=== PATIENT | male | born 1950 | race Caucasian/White ===

== ENCOUNTER 2017-07-16 19:01 | Emergency (ER) | payer OTHER ==
[2017-07-16 19:17] VITALS: TEMP 98.6
--- NOTE | 2017-07-16 19:35 | EDPHY ---
H & P Time Seen by Provider: 07/16/17 19:32 HPI/ROS: CHIEF COMPLAINT: Elevated blood pressure HISTORY OF PRESENT ILLNESS: Patient is a 67-year-old male with a history of coronary artery disease and stent x2 who presents to the emergency department with elevated blood pressure. The patient states in April blood pressure was 133/83. On 07/03/2017 his pressure was 143/74. Yesterday he took his blood pressure and it was 164/72. Today took a blood pressure and was 180/112. He denies any specific complaints. He has a mild headache. No focal deficits. No nausea or vomiting. No chest pain or shortness of breath. No abdominal pain. He has not used any tzvc-yly-bezdige medications. He changed to zetia a few months ago but otherwise his medications are unchanged. REVIEW OF SYSTEMS: My complete review of systems is negative except as mentioned in the HPI. Past Medical/Surgical History: Includes coronary artery disease, hypothyroidism, high cholesterol Past surgical history: Includes stent placement Social history: The patient does not smoke. He denies drug use. He drinks a couple of beers daily. Smoking Status: Former smoker Physical Exam: 197/116, 77, 20, 94% on room air, 37% GENERAL: Well-appearing, in no acute distress, alert. HEENT: Eyes normal to inspection, normal pharynx, no signs of dehydration. NECK: No thyromegaly, no lymphadenopathy, supple. RESPIRATORY: Clear to auscultation bilaterally, no rales, rhonchi or wheezing. CVS: Regular rate and rhythm, no rubs, murmurs, or gallops. ABDOMEN: Soft, nontender, nondistended, no organomegaly. BACK: Normal to inspection, no CVA tenderness. SKIN: Normal color, no rash, warm, dry. No pallor. EXTREMITIES: No pedal edema, no calf tenderness, no Homans sign or cords, no joint swelling. NEURO/PSYCH: Alert and oriented x3, normal mood and affect, normal motor sensory exam. No obvious cranial nerve deficit. Constitutional: Initial Vital Signs Temperature (C) 37 C 07/16/17 19:15 Heart Rate 77 07/16/17 19:15 Respiratory Rate 20 07/16/17 19:15 Blood Pressure 197/116 H 07/16/17 19:15 O2 Sat (%) 94 07/16/17 19:15 O2 Delivery Mode Room Air Allergies/Adverse Reactions: tetracycline Allergy (Verified 07/16/17 19:13) Home Medications: Medication Instructions Recorded Lisinopril 10 mg PO DAILY #7 tablet 07/16/17 Omeprazole 07/16/17 Zetia 07/16/17 Medical Decision Making ED Course/Re-evaluation: In the emergency department I discussed etiologies with the patient answered all his questions. An IV was placed. Laboratory studies were obtained. EKG shows normal sinus rhythm, normal rate, normal axis, normal intervals. There are no ST or T-wave abnormalities. EKG is normal as interpreted by me. I rechecked the patient's blood pressure on numerous occasions while here. Prior to leaving his blood pressure was 171/104. Chemistry panel and CBC were unremarkable. TSH was 5. Troponin is negative. I discussed with him. I answered his questions. He will be given a dose of lisinopril 10 mg orally. He will be given 1 week supply of lisinopril. He will follow up with his primary care physician at [place]. He will return with worsening symptoms. He is given warnings prior to leaving. Differential Diagnosis: My differential includes but is not limited to essential hypertension, hypertensive urgency, hypertensive emergency, renal disease, ACS - Data Points Laboratory Results: Laboratory Results 07/16/17 20:05 07/16/17 20:05 07/16/17 07/16/17 20:05 20:05 WBC 6.98 10^3/uL 10^3/uL (3.80-9.50) RBC 5.14 10^6/uL 10^6/uL (4.40-6.38) Hgb 16.3 g/dL g/dL (13.7-17.5) Hct 46.4 % % (40.0-51.0) MCV 90.3 fL fL (81.5-99.8) MCH 31.7 pg pg (27.9-34.1) MCHC 35.1 g/dL g/dL (32.4-36.7) RDW 12.8 % % (11.5-15.2) Plt Count 236 10^3/uL 10^3/uL (150-400) MPV 10.2 fL fL (8.7-11.7) Neut % (Auto) 61.1 % % (39.3-74.2) Lymph % (Auto) 23.8 % % (15.0-45.0) [place] % (Auto) 12.3 % % (4.5-13.0) Eos % (Auto) 1.9 % % (0.6-7.6) Baso % (Auto) 0.6 % % (0.3-1.7) Nucleat RBC Rel Count 0.0 % % (0.0-0.2) Absolute Neuts (auto) 4.27 10^3/uL 10^3/uL (1.70-6.50) Absolute Lymphs (auto) 1.66 10^3/uL 10^3/uL (1.00-3.00) Absolute Monos (auto) 0.86 10^3/uL H 10^3/uL (0.30-0.80) Absolute Eos (auto) 0.13 10^3/uL 10^3/uL (0.03-0.40) Absolute Basos (auto) 0.04 10^3/uL 10^3/uL (0.02-0.10) Absolute Nucleated RBC 0.00 10^3/uL 10^3/uL (0-0.01) Immature Gran % 0.3 % % (0.0-1.1) Immature Gran # 0.02 10^3/uL 10^3/uL (0.00-0.10) Sodium 140 mEq/L mEq/L (134-144) Potassium 4.3 mEq/L mEq/L (3.5-5.2) Chloride 105 mEq/L mEq/L (97-110) Carbon Dioxide 25 mEq/l mEq/l (22-31) Anion Gap 10 mEq/L mEq/L (8-16) BUN 21 mg/dL mg/dL (7-23) Creatinine 1.1 mg/dL mg/dL (0.7-1.3) Estimated GFR > 60 Glucose 91 mg/dL mg/dL (70-100) Calcium 9.7 mg/dL mg/dL (8.5-10.4) Troponin I < 0.012 ng/mL ng/mL (0.000-0.034) TSH 5.020 uIU/mL H uIU/mL (0.465-4.680) Departure - Departure Disposition: Home, Routine, Self-Care Clinical Impression: Hypertension Qualifiers: Hypertension type: unspecified Qualified Code(s): I10 - Essential (primary) hypertension Condition: Good Instructions: Hypertension (ED) Additional Instructions: You been given a 1st dose of lisinopril 10 mg orally. You been given prescription for 1 week supply of lisinopril tick followed instructions. You need close follow-up with your primary care physician. Return to the emergency department with increasing chest pain, shortness of breath, headache, weakness, numbness or any other concerns. Referrals: TYRONE TRUJILLO [Other] - 2-3 days, call for appt. Prescriptions: Lisinopril 10 mg PO DAILY #7 tablet
--- NOTE | 2017-07-16 19:36 | CPEKG ---
Heart Rate: 75 RR Interval: 800 P-R Interval: 184 QRSD Interval: 82 QT Interval: 384 QTC Interval: 429 P [place]: 21 QRS [place]: 22 T Wave [place]: 18 EKG Severity - NORMAL ECG - EKG Impression: SINUS RHYTHM Electronically Signed By: Levi Reddy 16-Jul-2017 20:14:57
[2017-07-16 20:15] LABS: PLATELET COUNT 236 10^3/uL (150-400)
[2017-07-16] MEDS ORDERED: LISINOPRIL 20 MG TAB PO ONE (21:45)
[2017-07-16 21:59] VITALS: BP 159/93; PULSE 75; RESP 16; O2SAT 96
== END 2017-07-16 21:50 | disposition home or self-care (01) ==
DX: I10 Essential (primary) hypertension (principal); I25.10 Atherosclerotic heart disease of native coronary artery without angina pectoris; Z87.891 Personal history of nicotine dependence